=== PATIENT | female | born 1960 | race Caucasian/White ===

== ENCOUNTER 2017-01-18 12:50 | Emergency (ER) | payer BC ==
[~2017-01-18] VITALS: Ht 170.2 cm; Wt 77.1 kg
[2017-01-18 12:58] VITALS: BP_SYST 129
[2017-01-18] MEDS ORDERED: DEXAMETHASONE SOD PHOSPHATE 10 MG/ML VIAL IM ONE (14:30)
[2017-01-18] MEDS ORDERED: KETOROLAC TROMETHAMINE 60 MG/2 ML VIAL IM ONE (14:30)
[2017-01-18 14:53] VITALS: BP_SYST 129
== END 2017-01-18 14:53 | disposition home or self-care (01) ==
LOC: SED 12:50
DX: J02.9 Acute pharyngitis, unspecified (principal); E78.00 Pure hypercholesterolemia, unspecified
CPT/HCPCS: 96372; 99284; J1100; J1885